=== PATIENT | male | born 1950 | race Caucasian/White ===

== ENCOUNTER 2024-05-11 13:03 | Inpatient (IN) | payer MEDICARE ==
[~2024-05-11] VITALS: Ht 176.5 cm; Wt 74.4 kg
--- NOTE | 2024-05-11 13:13 | NUR ---
bibs from urgent care for abnormal EKG. denies CP. pt continued to monitor and waiting for er md frias.
--- NOTE | 2024-05-11 13:20 | NUR ---
er at bedside for eval
--- NOTE | 2024-05-11 13:30 | NUR ---
sl established, blood drawn and sent to lab
--- NOTE | 2024-05-11 13:50 | NUR ---
JESSICA FROM URGENT CARE CALLED TO FAX EKG. CALLBACK NUMBER IS [phone] Addendum: 05/11/24 at 1419 by KARYN JESSICA FROM PCP CALLED TO FAX EKG. CALLBACK NUMBER IS [phone]
[2024-05-11 13:56] LABS: CARBON DIOXIDE 26 mmol/L (21-32); CHLORIDE 104 mmol/L (98-107); CREATININE 0.7 mg/dL (0.6-1.3); GLUCOSE 98 mg/dL (74-106); POTASSIUM 4.2 mmol/L (3.5-5.1); SODIUM SERUM 139 mmol/L (136-145); UREA NITROGEN, BLOOD 18 mg/dL (7-18)
[2024-05-11 13:58] LABS: PARTIAL THROMBOPLASTIN TIME 25.7 SEC (24.3-34.3); PROTHROMBIN TIME 10.6 SECS (9.2-11.1)
--- NOTE | 2024-05-11 13:59 | NUR ---
xray at bedside
[2024-05-11] MEDS: IV NS 0.9% 1,000 ML BAG IV ONE (14:00)
[2024-05-11 14:03] LABS: BASOPHILS % (AUTO) 0.3 % (0.0-2.0); EOSINOPHILS % (AUTO) 0.8 % (0.0-6.0); HEMATOCRIT 42 % (39-51); HEMOGLOBIN 13.7 g/dL (13.5-17.5); LYMPHOCYTES # (AUTO) 1.5 K/uL (0.8-4.8); LYMPHOCYTES % (AUTO) 22.9 % (20.0-44.0); MEAN CORPUSCULAR HEMOGLOBIN 32 PG (26.0-33.0); MEAN CORPUSCULAR HGB CONC 33 g/dl (31.0-36.0); MEAN CORPUSCULAR VOLUME 97 fL (80-96); MONOCYTES # (AUTO) 0.6 K/uL (0.1-1.30); NEUTROPHILS # (AUTO) 4.3 K/uL (1.8-8.9); PLATELET COUNT (AUTO) 204 K/uL (150-450); RED BLOOD CELL COUNT(AUTO) 4.27 MIL/uL (4.5-6.0); RED CELL DISTRIBUTION WIDTH 13.7 % (11.5-15.0); WHITE BLOOD COUNT (AUTO) 6.5 K/uL (4.3-11.0)
[2024-05-11 14:09] LABS: ALANINE AMINOTRANSFERASE 28 U/L (12-78); ALKALINE PHOSPHATASE 38 U/L (46-116); ASPARTATE AMINOTRANSFERASE 24 U/L (15-37); BILIRUBIN,DIRECT 0.1 mg/dL (0.0-0.2); BILIRUBIN,TOTAL 0.6 mg/dL (0.2-1.0); NT-PRO BNP 150 pg/mL (0-125); TOTAL PROTEIN, SERUM 6.9 g/dL (6.4-8.2)
--- NOTE | 2024-05-11 14:19 | NUR ---
Chris laughlin in [facility] - 05/11/24 at 1419 by KARYN JESSICA FROM PCP CALLED TO FAX EKG. CALLBACK NUMBER IS [phone]
[2024-05-11] MEDS: ASPIRIN 325 MG TABLET PO ONE (14:30)
[2024-05-11] MEDS ORDERED: ASPIRIN 325 MG TABLET ONE (14:37)
--- NOTE | 2024-05-11 14:47 | NUR ---
PT PRECINCT POLICE LIEUTENANT ON THE PHONE WITH ASHOK FIGUEROA
--- NOTE | 2024-05-11 14:53 | NUR ---
MOVE SHEET SUBMITTED & CALLED FOR BED.
--- NOTE | 2024-05-11 14:57 | NUR ---
PT LOGGING OPERATIONS INSPECTOR ON THE PHONE WITH ASHOK FIGUEROA
--- NOTE | 2024-05-11 15:22 | NUR ---
MENAGERIE CARETAKER IS DR. HUMPHREY AND PCP IS DR. ALVARENGA
--- NOTE | 2024-05-11 15:45 | NUR ---
CALLED [facility] [phone] JODEE JAQUEZ CURRENTLY ON DIVERSION WITH 43 WAITING. WELCOME TO CALL BACK NATY.
--- NOTE | 2024-05-11 16:02 | NUR ---
DR. RODRIGUES SPEAKING WITH DR JHAVERI
[2024-05-11] MEDS ORDERED: ATOR10TA PO (16:04)
[2024-05-11] MEDS ORDERED: EZET10TA15 PO (16:04)
[2024-05-11] MEDS ORDERED: ASPI-1169 PO (16:04)
[2024-05-11] MEDS ORDERED: VALS160T29 PO (16:04)
[2024-05-11] MEDS ORDERED: LEVO25TA7 PO (16:04)
--- NOTE | 2024-05-11 16:38 | NUR ---
GOT BED 307-2 ADMITTING INFORMED.
--- NOTE | 2024-05-11 16:44 | NUR ---
REPORT GIVEN TO JONE
[2024-05-11] MEDS ORDERED: ONDANSETRON HCL/PF 4 MG/2 ML VIAL IVP PRN (17:00)
[2024-05-11] MEDS ORDERED: Z GUARD REMEDY 4 OZ OINT TP PRN (17:00)
[2024-05-11] MEDS ORDERED: ACETAMINOPHEN 325 MG TABLET PO PRN (17:00)
--- NOTE | 2024-05-11 17:00 | NUR ---
TRANSPORTED PT WITH EMT TO [facility] VIA ACLS PROTOCOL
[2024-05-11 17:15] VITALS: BP 151/73; TEMP 97.7; O2SAT 98
[2024-05-11] MEDS: METOPROLOL TARTRATE 25 MG TABLET PO SCH (17:25)
--- NOTE | 2024-05-11 17:44 | NUR ---
BUS DRIVER SUPERVISORBUFFER COPPER NOTES PATIENT ADMITTED TO UNIT AT 1705 VIA GURNEY FROM . WITH DX OF NSTEMI. PT IS A/O X4 AND ABLE TO MAKE NEEDS, DENIES CP OR ANY DISCOMFORTS AT THIS TIME. PT ORIENTED TO STAFF AND ROOM. V/S TAKEN, STABLE AND RECORDED. ON ROOM AIR, TOLERATING WELL, BREATHING EVEN AND UNLABORED. PT'S SKIN IS INTACT WITH IV ACCESS NOTED ON RIGHT WRIST G#20 INTACT, PATENT AND SALINE LOCKED. LUNGS CLEAR ON AUSCULTATION. ABDOMEN SOFT AND NON-DISTENDED WITH BOWEL SOUND PRESENT. PT ABLE TO MOVE ALL EXTREMITIES W/O DIFFICULTIES. PT PLACED ON EXTERNAL STEAM PRESSER WITH CURRENT READING OF SR WITH INVERTED T-WAVE, HR 64, NO C/O CARDIAC DISTRESS VOICED AT THIS TIME. ALL SAFETY MEASURES IMPLEMENTED: BED PLACED IN LOWEST LOCKED POSITION, SR-UP X2, CALL LIGHT AND TRAY TABLE W/IN EASY REACH OF PT. WILL CONTINUE WITH POC.
--- NOTE | 2024-05-11 18:45 | NUR ---
GLASS CUTTER CLOSING NOTES PATIENT IN BED RESTING AND WATCHING TV AT THIS TIME. A/O X4 AND ABLE TO VERBALIZED NEEDS AND CONCERNS. ON ROOM AIR, TOLERATING WELL, BREATHING EVEN AND UNLABORED, NO ACUTE DISTRESS NOTED. IV ACCESS ON RIGHT WRIST G#20 INTACT, PATENT AND SALINE LOCKED. TELE-MONITOR SHOWS CURRENT READING OF SR WITH INVERTED T-WAVE, HR 66, NO C/O CARDIAC DISTRESS VOICED. NEEDS ATTENDED WELL. ALL SAFETY MEASURES MAINTAINED: BED IN LOWEST LOCKED POSITION, SR-UP X2, CALL LIGHT AND TRAY TABLE W/IN EASY REACH OF PT. WILL ENDORSE POC TO BOOK SOLICITOR NURSE.
--- NOTE | 2024-05-11 19:35 | NUR ---
SOCIAL HUMAN SERVICES ASSISTANTS OPENING NOTE RECEIVED PATIENT IN BED AWAKE, A/OX4 ABLE TO MAKE NEEDS KNOWN ON ROOM AIR NO SIGNS OF SOB AND DISTRESS IV ACCESS ON THE RIGHT WRIST #20G PATENT AND INTACT, ON SL, ON FACER OPERATOR SHOWING ST 101, NO COMPLAINT OF PAIN AT THIS TIME, SAFETY MEASURES MAINTAINED BED SET TO LOW AND LOCKED BED ALARM ON SIDE RAILS UPX2 PLACED CALL LIGHT AND BEDSIDE TABLE WITHIN EASY REACH WILL CONTINUE WITH PLAN OF CARE
[2024-05-11 20:00] VITALS: BP 139/86; TEMP 97.2; O2SAT 98
[2024-05-11 20:09] VITALS: BP 139/86; TEMP 97.2; O2SAT 98
--- NOTE | 2024-05-11 21:25 | NUR ---
PHYSICAL ANTHROPOLOGIST NOTE LABORATORY CALLED FOR LAB RESULT FOR PATIENT, TROPNIN IS 180, STILL TRENDING DOWN MD AWARE WILL CONTINUE TO MONITOR PATIENT
[2024-05-12 00:05] VITALS: BP 138/78; TEMP 97.5; O2SAT 100
[2024-05-12 04:05] VITALS: BP 136/75; TEMP 98.2; O2SAT 99
[2024-05-12 06:05] LABS: BASOPHILS % (AUTO) 0.2 % (0.0-2.0); EOSINOPHILS # (AUTO) 0.1 K/uL (0.0-0.7); HEMATOCRIT 41 % (39-51); HEMOGLOBIN 13.5 g/dL (13.5-17.5); LYMPHOCYTES # (AUTO) 1.3 K/uL (0.8-4.8); LYMPHOCYTES % (AUTO) 24.4 % (20.0-44.0); MEAN CORPUSCULAR HEMOGLOBIN 32 PG (26.0-33.0); MEAN CORPUSCULAR HGB CONC 33 g/dl (31.0-36.0); MEAN CORPUSCULAR VOLUME 97 fL (80-96); MONOCYTES # (AUTO) 0.6 K/uL (0.1-1.30); MONOCYTES % (AUTO) 10.6 % (2.0-12.0); NEUTROPHILS # (AUTO) 3.3 K/uL (1.8-8.9); NEUTROPHILS % (AUTO) 62.8 % (43.0-81.0); PLATELET COUNT (AUTO) 203 K/uL (150-450); RED CELL DISTRIBUTION WIDTH 13.6 % (11.5-15.0); WHITE BLOOD COUNT (AUTO) 5.3 K/uL (4.3-11.0)
[2024-05-12 06:27] LABS: CALCIUM, SERUM 9.3 mg/dL (8.5-10.1); CARBON DIOXIDE 25 mmol/L (21-32); CHLORIDE 107 mmol/L (98-107); CREATININE 0.8 mg/dL (0.6-1.3); GLUCOSE 98 mg/dL (74-106); MAGNESIUM 2.1 mg/dL (1.8-2.4); PHOSPHORUS 2.7 mg/dL (2.5-4.9); POTASSIUM 4.3 mmol/L (3.5-5.1); SODIUM SERUM 141 mmol/L (136-145); UREA NITROGEN, BLOOD 17 mg/dL (7-18)
[2024-05-12 06:28] LABS: CHOLESTEROL 116 mg/dL (<200); HDL CHOLESTEROL 48 mg/dL (40-60); LDL 56 mg/dL (0-99); TRIGLYCERIDES 60 mg/dL (30-150)
--- NOTE | 2024-05-12 06:45 | NUR ---
CERTIFIED PHARMACIST ASSISTANT CLOSING NOTE PATIENT IN ROOM AWAKE, A/OX4 ABLE TO MAKE NEEDS KNOWN, ON ROOM AIR NO SIGNS OF SOB AND DISTRESS AT THIS TIME, WITH AN IV ACCESS ON THE RIGHT WRIST #20G PATENT AND INTACT ON SL, ON STAVE JOINTER READING SR 72 WITH INVERTED T-WAVES , ABLE TO AMBULATE TO THE RESTROOM, PATIENT KEPT CLEAN AND DRY NO COMPLAINTS OF PAIN,SAFETY MEASURES MAINTAINED BED SET TO LOW AND LOCKED BED ALARM ON SIDE RAILS UPX2 PLACED CALL LIGHT AND BEDSIDE TABLE WITHIN EASY REACH WILL ENDORSE TO INCOMING NURSE FOR CONTINUITY OF CARE
[2024-05-12 08:00] VITALS: BP 169/89; TEMP 98.4; O2SAT 95
--- NOTE | 2024-05-12 08:00 | NUR ---
received pt. in am alert and oriented x4.denies chest pain.taking all meds.bp elevated.
[2024-05-12] MEDS: VALSARTAN 80 MG TABLET PO SCH (08:08)
[2024-05-12] MEDS: ASPIRIN 81 MG TAB.CHEW PO SCH (08:08)
[2024-05-12] MEDS: LEVOTHYROXINE SODIUM 25 MCG TABLET PO SCH (08:08)
[2024-05-12] MEDS: EZETIMIBE 10 MG TABLET PO SCH (08:08)
[2024-05-12 08:09] VITALS: BP 171/62
[2024-05-12] MEDS: ATORVASTATIN 10 MG TABLET PO SCH (08:09)
--- NOTE | 2024-05-12 09:00 | NUR ---
dr. tracy in and pt. planning on going home.awaiting waste/materials exchange specialist.
--- NOTE | 2024-05-12 11:00 | NUR ---
and friend in to visit.
--- NOTE | 2024-05-12 12:00 | NUR ---
dr. rico in and ok'd discharge.
--- NOTE | 2024-05-12 13:30 | NUR ---
all paperwork signed including belonging sheet.pt. in touch with his personal tongue trimmer.hep lock out.tele monitor removed,pt. escorted to lobby accompanied by friend and rn.
== END 2024-05-12 14:53 | disposition home or self-care (01) | DRG 282 ==
LOC: ER 13:08 → TELE 16:50
PROVIDERS: ADMIT Internal Medicine; ATTEND Internal Medicine
DX: I21.4 Non-ST elevation (NSTEMI) myocardial infarction (principal); I25.10 Atherosclerotic heart disease of native coronary artery without angina pectoris; Z95.5 Presence of coronary angioplasty implant and graft; Z79.890 Hormone replacement therapy; Z79.82 Long term (current) use of aspirin; Z79.899 Other long term (current) drug therapy; E86.0 Dehydration; I10 Essential (primary) hypertension
CPT/HCPCS: 36415; 71045-TC; 80048-TC; 80061-TC; 80076-TC; 83735-TC; 83880; 84100-TC; 84484-TC; 85025-TC; 85730-TC; 93307-TC; A4223; G0378; J7030

== ENCOUNTER 2025-07-18 10:32 | Inpatient (IN) | payer MEDICARE ==
[~2025-07-18] VITALS: Ht 175.3 cm; Wt 73.9 kg
[~2025-07-18 10:32] MED LIST: ASPI-1169 PO; ATOR10TA PO; EZET10TA15 PO; LEVO25TA7 PO; VALS160T29 PO
[2025-07-18 10:59] LABS: PLATELET COUNT (AUTO) 225 K/uL (150-450); RED BLOOD CELL COUNT(AUTO) 4.55 MIL/uL (4.5-6.0); RED CELL DISTRIBUTION WIDTH 13.5 % (11.5-15.0); WHITE BLOOD COUNT (AUTO) 6.7 K/uL (4.3-11.0)
[2025-07-18 11:08] LABS: CALCIUM, SERUM 9.5 mg/dL (8.5-10.1); CREATININE 1.0 mg/dL (0.6-1.3); SODIUM SERUM 136 mmol/L (136-145); UREA NITROGEN, BLOOD 24 mg/dL (7-18)
[2025-07-18] MEDS ORDERED: MECLIZINE HCL 25 MG TABLET ONE (11:14)
[2025-07-18] MEDS: MECLIZINE HCL 25 MG TABLET PO ONE (11:16)
[2025-07-18 11:21] LABS: ASPARTATE AMINOTRANSFERASE 30 U/L (15-37); NT-PRO BNP 185 pg/mL (0-125); TOTAL PROTEIN, SERUM 7.8 g/dL (6.4-8.2)
[2025-07-18] MEDS ORDERED: CLOP75TA15 PO (11:28)
[2025-07-18] MEDS ORDERED: ASPIRIN 325 MG TABLET ONE (13:08)
[2025-07-18] MEDS: ASPIRIN 325 MG TABLET PO ONE (13:10)
[2025-07-18] MEDS ORDERED: ONDANSETRON HCL/PF 4 MG/2 ML VIAL IVP PRN (13:30)
[2025-07-18] MEDS ORDERED: ACETAMINOPHEN 325 MG TABLET PO PRN (13:30)
[2025-07-18] MEDS ORDERED: MAGNESIUM HYDROXIDE 30 ML UDC PO PRN (13:30)
[2025-07-18] MEDS ORDERED: Z GUARD REMEDY 4 OZ OINT TP PRN (13:30)
[2025-07-18] MEDS ORDERED: MAG HYDROX/AL HYDROX/SIMETH 30 ML UDC PO PRN (13:30)
[2025-07-18 15:30] VITALS: BP 147/75; TEMP 97.5
[2025-07-18] MEDS: VALSARTAN 80 MG TABLET PO SCH (17:26)
[2025-07-18 17:33] VITALS: BP 115/67; TEMP 97.5; O2SAT 97
[2025-07-18 20:00] VITALS: BP 137/69; TEMP 97.5; O2SAT 95
[2025-07-18 21:33] VITALS: BP 137/69; TEMP 97.5; O2SAT 95
[2025-07-19] VITALS: BP 148/84; TEMP 98.4; O2SAT 98
[2025-07-19 00:51] VITALS: BP 148/84; TEMP 98.4; O2SAT 98
[2025-07-19 04:00] VITALS: BP 127/75; TEMP 97.5; O2SAT 98
[2025-07-19 05:30] VITALS: BP 127/85; TEMP 98.1; O2SAT 98
[2025-07-19 06:09] LABS: PLATELET COUNT (AUTO) 209 K/uL (150-450); RED BLOOD CELL COUNT(AUTO) 4.29 MIL/uL (4.5-6.0); RED CELL DISTRIBUTION WIDTH 13.7 % (11.5-15.0); WHITE BLOOD COUNT (AUTO) 5.9 K/uL (4.3-11.0)
[2025-07-19 06:31] LABS: CALCIUM, SERUM 8.9 mg/dL (8.5-10.1); CREATININE 1.0 mg/dL (0.6-1.3); PHOSPHORUS 3.6 mg/dL (2.5-4.9); SODIUM SERUM 139.0 mmol/L (136-145); UREA NITROGEN, BLOOD 24.0 mg/dL (7-18)
[2025-07-19 07:00] VITALS: BP 136/75; TEMP 97.3; O2SAT 96
[2025-07-19 08:16] VITALS: BP 136/75
[2025-07-19] MEDS: ASPIRIN 81 MG TAB.CHEW PO SCH (08:16)
[2025-07-19] MEDS: ATORVASTATIN 10 MG TABLET PO SCH (08:16)
[2025-07-19] MEDS: EZETIMIBE 10 MG TABLET PO SCH (08:16)
[2025-07-19] MEDS: LEVOTHYROXINE SODIUM 25 MCG TABLET PO SCH (08:17)
[2025-07-19] MEDS: CLOPIDOGREL BISULFATE 75 MG TABLET PO SCH (08:17)
[2025-07-19 09:04] LABS: LDL 68.0 mg/dL (0-99)
[2025-07-19] MEDS ORDERED: IOHEXOL-350 100 ML VIAL IV ONE (09:13)
[2025-07-19] MEDS ORDERED: IV NS 0.9% 250 ML IV ONE (09:13)
[2025-07-19] MEDS: IV NS 0.9% 1,000 ML IV PRN (10:03)
[2025-07-19] MEDS ORDERED: APIX5TAB PO ×2 (14:21→14:23)
== END 2025-07-19 15:52 | disposition home or self-care (01) | DRG 149 ==
LOC: ER 10:40 → TELE 14:54
PROVIDERS: ADMIT Internal Medicine; ATTEND Internal Medicine
DX: H81.10 Benign paroxysmal vertigo, unspecified ear (principal); I21.A1 Myocardial infarction type 2; I51.3 Intracardiac thrombosis, not elsewhere classified; Z79.02 Long term (current) use of antithrombotics/antiplatelets; I10 Essential (primary) hypertension; I25.10 Atherosclerotic heart disease of native coronary artery without angina pectoris; E78.00 Pure hypercholesterolemia, unspecified; Z95.5 Presence of coronary angioplasty implant and graft; Z79.899 Other long term (current) drug therapy; Z79.82 Long term (current) use of aspirin; R79.89 Other specified abnormal findings of blood chemistry; Z88.9 Allergy status to unspecified drugs, medicaments and biological substances; Z79.890 Hormone replacement therapy
CPT/HCPCS: 36415; 70450-TC; 71045-TC; 75574; 80048-TC; 80061-TC; 80076-TC; 82962-TC; 83735-TC; 83880; 84100-TC; 84439-TC; 84443-TC; 84484-TC; 85025-TC; 93307-TC; A4223; G0378; J7030; J7050; J8597; Q9967